=== PATIENT | female | born 2000 | race African-American/Black ===

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

== ENCOUNTER 2018-04-17 08:59 | Emergency (ER) | payer MEDICAID ==
[~2018-04-17] VITALS: Ht 177.8 cm; Wt 109.0 kg
[2018-04-17 09:07] VITALS: BP 150/70; PULSE 98; RESP 22; TEMP 98.2; O2SAT 100
[2018-04-17] MEDS ORDERED: SODIUM CHLORIDE 0.9% FLUSH 10 ML FLUSH IV FLUSH PRN (09:15)
[2018-04-17 09:28] LABS: BASOPHIL % 0.4 % (0.0-2.0); EOSINOPHIL % 0.8 % (0.0-4.0); HEMATOCRIT 37.5 % (35.0-46.0); HEMOGLOBIN 12.5 GM/DL (11.6-15.3); LYMPH % 32.6 % (9.0-44.0); LYMPHOCYTE # 1.7 TH/MM3 (1.0-4.8); MEAN CELL VOLUME 92.8 FL (80.0-100.0); MEAN CORPUSCULAR HEMOGLOBIN 31.1 PG (27.0-34.0); MEAN CORPUSCULAR HGB CONC 33.5 % (32.0-36.0); MONO % 7.3 % (0.0-8.0); MONOCYTE # 0.4 TH/MM3 (0-0.9); NEUT % 58.9 % (16.0-70.0); PLATELET COUNT 337 TH/MM3 (150-450); RED BLOOD COUNT 4.03 MIL/MM3 (4.00-5.30); RED CELL DISTRIBUTION WIDTH 12.3 % (11.6-17.2); WHITE BLOOD COUNT 5.1 TH/MM3 (4.0-11.0)
--- NOTE | 2018-04-17 09:33 | PD ---
HPI Chief Complaint: Abdominal Pain Time Seen by Provider: 09:09 Travel History International Travel<30 days: No Contact w/Intl Traveler<30days: No Traveled to known affect area: No History of Present Illness HPI Is a 17-year-old young woman presents emergency department when he of abdominal pain. She states it started this morning, more in the epigastrium, radiates through to the back. Decision was of nausea and vomiting just this morning. States she had similar symptoms when she was last year. She otherwise has been well. No urinary symptoms, no diarrhea, no vaginal discharge or vaginal bleeding. Last menstrual period was about 4 days ago. She has some chronic back problems takes Tylenol occasionally, no regular NSAID use, no alcohol use. No clear aggravating or alleviating factors other than pressure and laying on her stomach. Does not appear to be associated with eating. No history of gallbladder problems or GERD or reflux. History Past Medical History Medical History: Denies Significant Hx Influenza Vaccination: No LMP: 04/15/18 Menopausal: No : 1 Para: 1 Dilation and Curettage (D&C): No Social History Alcohol Use: No Tobacco Use: No Allergies-Medications (Allergen,Severity, Reaction): Coded Allergies: No Known Allergies (Unverified Allergy, Unknown, 04/17/18) Reported Meds & Prescriptions Reported Meds & Active Scripts Active No Active Prescriptions or Reported Medications Review of Systems Except as stated in HPI: all other systems reviewed are Neg Physical Exam Narrative GENERAL: Well-appearing 17-year-old young woman, no acute distress. SKIN: Focused skin assessment warm/dry. HEAD: Atraumatic. Normocephalic. EYES: Pupils equal and round. No scleral icterus. No injection or drainage. ENT: No nasal bleeding or discharge. Mucous membranes pink and moist. NECK: Trachea midline. No JVD. CARDIOVASCULAR: Regular rate and rhythm. No murmur appreciated. RESPIRATORY: No accessory muscle use. Clear to auscultation. Breath sounds equal bilaterally. GASTROINTESTINAL: Abdomen is obese, soft, minimal epigastric tenderness, no rebound or guarding, no right upper quadrant tenderness. Negative Pantoja's. MUSCULOSKELETAL: No obvious deformities. No clubbing. No cyanosis. No edema. NEUROLOGICAL: Awake and alert. No obvious cranial nerve deficits. Motor grossly within normal limits. Normal speech. PSYCHIATRIC: Appropriate mood and affect; insight and judgment normal. Data Data Last Documented VS Vital Signs Date Time Temp Pulse Resp B/P (MAP) Pulse Ox O2 Delivery O2 Flow Rate FiO2 04/17/18 13:04 68 18 110/56 (74) 100 Room Air 04/17/18 09:07 98.2 Orders Orders Complete Blood Count With Diff (04/17/18 09:10) Comprehensive Metabolic Panel (04/17/18 09:10) Lipase (04/17/18 09:10) Urinalysis - C+S If Indicated (04/17/18 09:10) Iv Access Insert/Monitor (04/17/18 09:10) NPO (04/17/18 09:10) Sodium Chloride 0.9% Flush (Ns Flush) (04/17/18 09:15) Ed Urine Pregnancytest Poc (04/17/18 09:10) Us Abdomen Gallbladder (04/17/18 ) Ondansetron Odt (Zofran Odt) (04/17/18 09:45) Morphine Inj (Morphine Inj) (04/17/18 12:30) Labs Laboratory Tests Test 04/17/18 09:18 04/17/18 09:45 White Blood Count 5.1 TH/MM3 Red Blood Count 4.03 MIL/MM3 Hemoglobin 12.5 GM/DL Hematocrit 37.5 % Mean Corpuscular Volume 92.8 FL Mean Corpuscular Hemoglobin 31.1 PG Mean Corpuscular Hemoglobin Concent 33.5 % Red Cell Distribution Width 12.3 % Platelet Count 337 TH/MM3 Mean Platelet Volume 8.0 FL Neutrophils (%) (Auto) 58.9 % Lymphocytes (%) (Auto) 32.6 % Monocytes (%) (Auto) 7.3 % Eosinophils (%) (Auto) 0.8 % Basophils (%) (Auto) 0.4 % Neutrophils # (Auto) 3.0 TH/MM3 Lymphocytes # (Auto) 1.7 TH/MM3 Monocytes # (Auto) 0.4 TH/MM3 Eosinophils # (Auto) 0.0 TH/MM3 Basophils # (Auto) 0.0 TH/MM3 CBC Comment DIFF FINAL Differential Comment Blood Urea Nitrogen 10 MG/DL Creatinine 0.76 MG/DL Random Glucose 98 MG/DL Total Protein 8.2 GM/DL Albumin 3.8 GM/DL Calcium Level 8.9 MG/DL Alkaline Phosphatase 106 U/L Aspartate Amino Transf (AST/SGOT) 428 U/L Alanine Aminotransferase (ALT/SGPT) 233 U/L Total Bilirubin 0.7 MG/DL Sodium Level 140 MEQ/L Potassium Level 4.2 MEQ/L Chloride Level 108 MEQ/L Carbon Dioxide Level 22.5 MEQ/L Anion Gap 10 MEQ/L Estimat Glomerular Filtration Rate 119 ML/MIN Lipase 123 U/L Urine Color YELLOW Urine Turbidity CLOUDY Urine pH 8.0 Urine Specific [place] 1.021 Urine Protein 30 mg/dL Urine Glucose (UA) NEG mg/dL Urine Ketones NEG mg/dL Urine Occult Blood NEG Urine Nitrite NEG Urine Bilirubin NEG Urine Leukocyte Esterase SMALL Urine RBC 1 /hpf Urine WBC 1 /hpf Urine Squamous Epithelial Cells 5 /hpf Microscopic Urinalysis Comment CULT NOT INDICATED MDM Medical Decision Making Medical Screen Exam Complete: Yes Emergency Medical Condition: Yes Interpretation(s) LABS: CBC is unremarkable. CMP remarkable for elevated AST and ALT. Lipase is normal UA is unremarkable. Right upper quadrant ultrasound: Gallstones with gallbladder wall thickening, acute versus chronic cholecystitis. Mild tenderness over the gallbladder. Differential Diagnosis Gastritis, pancreatitis, PUD, cholecystitis, other Narrative Course Is a well-appearing 17-year-old woman presents emerged department epigastric pain with some tenderness. At risk for biliary disease. Suspect more gastritis. Will check labs, ultrasound, likely treatment with H2 jesus, Zofran if needed. Physician Communication Physician Communication Spoke with Dr. Ritchie, can the bedside to evaluate the patient. Would like to discharge patient for follow-up as an outpatient for repeat evaluation and likely outpatient surgical treatment. Diagnosis Primary Impression: Biliary colic Referrals: Tangela Rangel MD 1 week Patient Instructions: General Instructions Additional Instructions: Eat a low-fat diet. Follow-up with Dr. Ritchie as discussed. Take Lortab if needed for severe pain. Return to the emergency department for any new or worsening symptoms per Med/Other Pt SpecificInfo: No Change to Meds Scripts Ondansetron Odt (Ondansetron Odt) 4 Mg Tab 4 MG SL Q8HR Y for Nausea/Vomiting, #12 TAB 0 Refills Prov: Julian Sewell MD 04/17/18 Hydrocodone-Acetaminophen (Hydrocodone-Acetaminophen) 5-325 mg Tab 1 TAB PO Q6H Y for PAIN, #12 TAB 0 Refills Prov: Julian Sewell MD 04/17/18 Disposition: 01 DISCHARGE HOME Condition: Stable Julian Sewell MD Apr 17, 2018 09:33
[2018-04-17] MEDS ORDERED: ONDANSETRON ODT 4 MG TAB PO ONE (09:45)
[2018-04-17 09:49] LABS: ALBUMIN 3.8 GM/DL (3.4-5.0); ALT (GPT) 233 U/L (9-42); AST (GOT) 428 U/L (16-38); BICARBONATE 22.5 MEQ/L (21.0-32.0); BLOOD UREA NITROGEN 10 MG/DL (7-18); CALCIUM 8.9 MG/DL (8.5-10.1); CHLORIDE 108 MEQ/L (98-107); CREATININE 0.76 MG/DL (0.50-1.00); GLOMERULAR FILTRATION RATE 119 ML/MIN (>89); GLUCOSE,RANDOM 98 MG/DL (74-106); SODIUM (NA) 140 MEQ/L (136-145)
[2018-04-17 09:51] LABS: ALKALINE PHOSPHATASE 106 U/L (45-117); TOTAL BILIRUBIN ADULT 0.7 MG/DL (0.2-1.0); TOTAL PROTEIN 8.2 GM/DL (6.4-8.2)
[2018-04-17 10:19] LABS: BILIRUBIN, URINE NEG (NEG); BLOOD, URINE NEG (NEG); GLUCOSE,URINE NEG (NEG); KETONE, URINE NEG (NEG); NITRITE,URINE NEG (NEG); SQUAMOUS EPITHELIAL CELL URINE 5 /hpf (0-5); URINE COLOR YELLOW (YELLW/STRAW); URINE LEUKOCYTE ESTERASE SMALL (NEG)
--- NOTE | 2018-04-17 10:48 | RADRPT ---
EXAM DATE: 04/17/2018 10:00 AM EDT AGE/SEX: 17 years / Female INDICATIONS: Right upper quadrant pain. CLINICAL DATA: This is the patient's initial encounter. Patient reports that signs and/or symptoms h ave been present for 1 day and indicates a pain score of 4/10. MEDICAL/SURGICAL HISTORY: Anemia. . section. COMPARISON: No prior exams available for comparison. MEASUREMENTS (cm x cm x cm): Liver:__ 17.3 cm length Common Bile Duct:__ 5mm FINDINGS: Liver: Increased echotexture without focal lesion or ductal dilation. Portal Vein: Hepatopedal flow seen in portal vein. Common Duct: No intraluminal mass or stone visualized. Gallbladder: Multiple gallstones are evident. Minimal gallbladder wall thickening. Pancreas: The visualized portions are within normal limits Right Kidney: 5 mm stone mid pole without hydronephrosis. Other: None. CONCLUSION: 1. Gallstones with gallbladder wall thickening. Acute versus chronic cholecystitis would be consider ation. Mild tenderness over the gallbladder. Electronically signed by: Juvenal Jennings MD 04/17/2018 10:47 AM EDT
[2018-04-17] MEDS ORDERED: MORPHINE SULFATE 4 MG/ML INJ IV PUSH ONE (12:30)
[2018-04-17 13:04] VITALS: BP 110/56; PULSE 68; RESP 18; O2SAT 100
[2018-04-17] MEDS ORDERED: HYDR-3516 PO (14:09)
[2018-04-17] MEDS ORDERED: ONDA4TAB7 SL (14:09)
--- NOTE | 2018-04-17 14:11 | PD.CAR.PN ---
CVT Progress Note Subjective/Hospital Course: 17-year-old female, presents to emergency room with about 12-hour history of a blunt epigastric pain. Patient states she ate [employer] last night and then pain started coming and going is mainly located in epigastrium and substernal. Patient also states that she has had this pain off and on through the and after the . She was told in the past that she has gallstones and will have to have it taken care of. At this point abdomen is soft active bowel sounds no rebound no guarding and not tender anymore. Patient is fairly large liver with steatosis Patient has no leukocytosis no left shift no elevation of alkaline phosphatase or bilirubin, but with mild elevation of SGOT SGPT consistent with steatosis At this point I reviewed the ultrasound and based on clinical findings I do not believe this is an emergency Patient can be discharged safely she will follow-up in my office for elective cholecystectomy In the meantime patient should be on low-fat diet and adhere to it Thanks J Objective: Vital Signs Date Time Temp Pulse Resp B/P (MAP) Pulse Ox O2 Delivery O2 Flow Rate FiO2 04/17/18 13:04 68 18 110/56 (74) 100 Room Air 04/17/18 09:07 98.2 98 22 150/70 (96) 100 Labs: Laboratory Tests Test 04/17/18 09:18 04/17/18 09:45 White Blood Count 5.1 TH/MM3 (4.0-11.0) Red Blood Count 4.03 MIL/MM3 (4.00-5.30) Hemoglobin 12.5 GM/DL (11.6-15.3) Hematocrit 37.5 % (35.0-46.0) Mean Corpuscular Volume 92.8 FL (80.0-100.0) Mean Corpuscular Hemoglobin 31.1 PG (27.0-34.0) Mean Corpuscular Hemoglobin Concent 33.5 % (32.0-36.0) Red Cell Distribution Width 12.3 % (11.6-17.2) Platelet Count 337 TH/MM3 (150-450) Mean Platelet Volume 8.0 FL (7.0-11.0) Neutrophils (%) (Auto) 58.9 % (16.0-70.0) Lymphocytes (%) (Auto) 32.6 % (9.0-44.0) Monocytes (%) (Auto) 7.3 % (0.0-8.0) Eosinophils (%) (Auto) 0.8 % (0.0-4.0) Basophils (%) (Auto) 0.4 % (0.0-2.0) Neutrophils # (Auto) 3.0 TH/MM3 (1.8-7.7) Lymphocytes # (Auto) 1.7 TH/MM3 (1.0-4.8) Monocytes # (Auto) 0.4 TH/MM3 (0-0.9) Eosinophils # (Auto) 0.0 TH/MM3 (0-0.4) Basophils # (Auto) 0.0 TH/MM3 (0-0.2) CBC Comment DIFF FINAL Differential Comment Blood Urea Nitrogen 10 MG/DL (7-18) Creatinine 0.76 MG/DL (0.50-1.00) Random Glucose 98 MG/DL (74-106) Total Protein 8.2 GM/DL (6.4-8.2) Albumin 3.8 GM/DL (3.4-5.0) Calcium Level 8.9 MG/DL (8.5-10.1) Alkaline Phosphatase 106 U/L (45-117) Aspartate Amino Transf (AST/SGOT) 428 U/L (16-38) Alanine Aminotransferase (ALT/SGPT) 233 U/L (9-42) Total Bilirubin 0.7 MG/DL (0.2-1.0) Sodium Level 140 MEQ/L (136-145) Potassium Level 4.2 MEQ/L (3.5-5.1) Chloride Level 108 MEQ/L (98-107) Carbon Dioxide Level 22.5 MEQ/L (21.0-32.0) Anion Gap 10 MEQ/L (5-15) Estimat Glomerular Filtration Rate 119 ML/MIN (>89) Lipase 123 U/L (73-393) Urine Color YELLOW (YELLW/STRAW) Urine Turbidity CLOUDY (CLEAR) Urine pH 8.0 (5.0-8.5) Urine Specific [place] 1.021 (1.002-1.035) Urine Protein 30 mg/dL (NEG-TRACE) Urine Glucose (UA) NEG mg/dL (NEG) Urine Ketones NEG mg/dL (NEG) Urine Occult Blood NEG (NEG) Urine Nitrite NEG (NEG) Urine Bilirubin NEG (NEG) Urine Leukocyte Esterase SMALL (NEG) Urine RBC 1 /hpf (0-3) Urine WBC 1 /hpf (0-5) Urine Squamous Epithelial Cells 5 /hpf (0-5) Microscopic Urinalysis Comment CULT NOT INDICATED Result Diagram: [id number]/[id number] Tangela Rangel MD Apr 17, 2018 14:11
[2018-04-17 14:20] VITALS: BP 116/70
--- NOTE | 2018-04-18 12:38 | EKG ---
Date Performed: 04/17/2018 Time Performed: 13:48:12 PTAGE: 17 years EKG: Sinus rhythm WITH MARKED SINUS ARRHYTHMIA BORDERLINE ECG INTERPRETATION BASED ON A DEFAULT AGE OF 38 YEARS NO PREVIOUS TRACING DOCTOR: Stefan Victoria Interpretating Date/Time 04/18/2018 12:36:10
== END 2018-04-17 14:37 | disposition home or self-care (01) ==
LOC: NEPD 08:59
DX: K80.70 Calculus of gallbladder and bile duct without cholecystitis without obstruction (principal)
CPT/HCPCS: 76705; 80053; 81001; 83690; 84703; 85025; 93005; 96374; 99285; J2270